=== PATIENT | female | born 1975 | race Caucasian/White ===

== ENCOUNTER → 2021-06-01 | Day surgery (SDC) | payer OTHER ==
[~2021-06-01] VITALS: Ht 175.3 cm; Wt 65.8 kg
[~2021-06-01] MED LIST: LAMICTAL200 MG PO; MELATONIN10 M2 PO; MINIPRESS5 MG PO; PROBIOTIC1 EAC1 PO; STOOL SOFTENER100 MG PO; ZOLOFT50 MG PO
[2021-06-01 10:04] LABS: HCG (URINE) SCREEN NEGATIVE (NEGATIVE)
== END | disposition home or self-care (01) ==
LOC: FAS 04-27 11:45
PROVIDERS: Anesthesiology
DX: Z12.11 Encounter for screening for malignant neoplasm of colon (principal); K63.5 Polyp of colon; K64.4 Residual hemorrhoidal skin tags; F17.200 Nicotine dependence, unspecified, uncomplicated; F32.A Depression, unspecified; F41.9 Anxiety disorder, unspecified; Z79.899 Other long term (current) drug therapy; Z72.89 Other problems related to lifestyle; Z80.1 Family history of malignant neoplasm of trachea, bronchus and lung
CPT/HCPCS: 84703; J2704; J7120